=== PATIENT | female | born 1970 | race African-American/Black ===

== ENCOUNTER 2023-01-23 | Emergency (ER) | payer MEDICAID ==
[~2023-01-23] VITALS: Ht 157.5 cm; Wt 61.0 kg
[2023-01-23] MEDS ORDERED: IBUPROFEN 600MG TABLET PO ONE (01:30)
[2023-01-23 01:50] VITALS: BP 152/84
[2023-01-23] MEDS ORDERED: IBUP-2029 PO (02:51)
== END 2023-01-23 03:00 | disposition home or self-care (01) ==
LOC: ER
DX: S43.101A Unspecified dislocation of right acromioclavicular joint, initial encounter (principal); V49.49XA Driver injured in collision with other motor vehicles in traffic accident, initial encounter; Y93.89 Activity, other specified; Y92.89 Other specified places as the place of occurrence of the external cause; Y99.8 Other external cause status
CPT/HCPCS: 72040; 73030; 99284; L3670